=== PATIENT | male | born 1960 | race Caucasian/White ===

== ENCOUNTER 2024-05-19 06:21 | Outpatient (CLI) | payer BC, SELFPAY ==
--- NOTE | 2024-05-19 07:34 | W.ANESCHARGE ---
Anesthesia Charges Start Date/Time Anesthesia Start Date: 05/19/24 Anesthesia Start Time: 07:20 Stop Date/Time Anesthesia Stop Date: 05/19/24
--- NOTE | 2024-05-19 07:41 | W.ANESCHARGE ---
Anesthesia Charges Start Date/Time Anesthesia Start Date: 05/19/24 Anesthesia Start Time: 07:20 Stop Date/Time Anesthesia Stop Date: 05/19/24 Anesthesia Stop Time: 07:50
--- NOTE | 2024-05-19 08:18 | W.ANESCHARGE ---
Anesthesia Charges Start Date/Time Anesthesia Start Date: 05/19/24 Anesthesia Start Time: 07:20 Stop Date/Time Anesthesia Stop Date: 05/19/24 Anesthesia Stop Time: 07:50
== END 2024-05-19 06:22 | disposition home or self-care (01) ==
LOC: OP CLINIC 06:22
PROVIDERS: PCP Family Medicine; Visit Provider Internal Medicine Gastroenterology
DX: Z12.11 Encounter for screening for malignant neoplasm of colon (principal); K63.5 Polyp of colon; K57.30 Diverticulosis of large intestine without perforation or abscess without bleeding
CPT/HCPCS: 00811; 45385; 88305; J2704